=== PATIENT | male | born 1960 | race Two or more races ===

== ENCOUNTER → 2020-12-08 | Outpatient (CLI) | payer BC ==
--- NOTE | 2020-12-08 15:28 | KCIC ---
EXAM: PA and Lateral Views of the Chest DATE: 12/08/2020 10:48 AM INDICATION: Reason: UPPER ANTERIOR CHEST PAIN, COUGH, RECENT BRONCHITIS / Spl. Instructions: / Histo ry: COMPARISON: No Prior FINDINGS: The heart is not enlarged. Mediastinal and hilar contours are normal. No focal parenchymal airspace opacity. No pleural effusion or pneumothorax. IMPRESSION: 1. No radiographic evidence for acute cardiopulmonary process. Electronically signed by: Jonathan Burgos MD (12/08/2020 3:26 PM) DIVYA
== END ==
LOC: KCIC 10:39
PROVIDERS: ATTEND Family Medicine
DX: J40 Bronchitis, not specified as acute or chronic (principal); R07.81 Pleurodynia; R05 Cough
CPT/HCPCS: 71046